=== PATIENT | male | born 1950 | race Caucasian/White ===

== ENCOUNTER → 2024-07-28 06:31 | Outpatient (REF) | payer MEDICARE, BC, SELFPAY | LOC: RAD 06:31 | PROVIDERS: ATTENDING PHYSICIAN Family Medicine | DX: F51.01 Primary insomnia (principal); R53.1 Weakness; R63.4 Abnormal weight loss | CPT/HCPCS: 71260; 74177; Q9967 ==

== ENCOUNTER → 2025-04-12 07:03 | Outpatient (REF) | payer MEDICARE, BC, SELFPAY | LOC: PAVMRI 07:03 | PROVIDERS: ATTENDING PHYSICIAN Family Medicine | DX: R53.83 Other fatigue (principal); R79.89 Other specified abnormal findings of blood chemistry; R20.8 Other disturbances of skin sensation; R42 Dizziness and giddiness; R63.4 Abnormal weight loss | CPT/HCPCS: 70553; A9575 ==

== ENCOUNTER → 2025-04-14 07:02 | Outpatient (REF) | payer MEDICARE, BC, SELFPAY | LOC: HWRCS 07:02 | PROVIDERS: ATTENDING PHYSICIAN Family Medicine | DX: R06.02 Shortness of breath (principal) | CPT/HCPCS: 78452; 93017; A9500; J2785 ==

== ENCOUNTER → 2025-04-15 07:12 | Outpatient (REF) | payer MEDICARE, BC, SELFPAY | LOC: HWRAD 07:12 | PROVIDERS: ATTENDING PHYSICIAN Family Medicine | DX: R53.83 Other fatigue (principal); R63.4 Abnormal weight loss; R59.0 Localized enlarged lymph nodes | CPT/HCPCS: 76882 ==

== ENCOUNTER → 2025-04-15 13:50 | Outpatient (REF) | payer MEDICARE, BC, SELFPAY | LOC: RCS 13:50 | PROVIDERS: ATTENDING PHYSICIAN Family Medicine; REFERRING PHYSICIAN Internal Medicine Cardiovascular Disease | DX: R68.89 Other general symptoms and signs (principal); R53.83 Other fatigue; R42 Dizziness and giddiness; R63.4 Abnormal weight loss; R59.0 Localized enlarged lymph nodes | CPT/HCPCS: 76882; 93306 ==

== ENCOUNTER 2025-04-22 08:51 | Day surgery (SDC) | payer MEDICARE, BC, SELFPAY ==
--- NOTE | 2025-04-23 08:47 | ITS.CL.CARDI ---
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
Cardioversion
Procedure Report:
Date of Procedure: 04/22/25
Procedure: Cardioversion
Indication: Symptomatic atrial fibrillation
Performing Physician: Roman Cates MD
Technique: The patient was brought to the holding area. Signed informed consent was obtained. A time out was called and performed. The patient was anesthetized by the anesthesia service. Anticoagulation status was reviewed and appropriate. R2 pads
were placed anteriorly and posteriorly. A 200 J synchronized biphasic shock restored normal sinus rhythm without significant bradycardia. There were no complications.
Conclusion: Uncomplicated cardioversion from atrial fibrillation to sinus rhythm.
Recommendation: Routine post cardioversion care. 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
== END 2025-04-22 11:19 | disposition home or self-care (01) ==
LOC: CATH 08:51
PROVIDERS: ATTENDING PHYSICIAN Internal Medicine Cardiovascular Disease; FAMILY PHYSICIAN Family Medicine; OTHER PHYSICIAN Internal Medicine Cardiovascular Disease
DX: I48.19 Other persistent atrial fibrillation (principal); Z79.01 Long term (current) use of anticoagulants; I08.0 Rheumatic disorders of both mitral and aortic valves; I08.8 Other rheumatic multiple valve diseases; I10 Essential (primary) hypertension; Z87.891 Personal history of nicotine dependence
CPT/HCPCS: 93312; 93320; 93325; 92960; 93005

== ENCOUNTER → 2025-04-26 09:41 | Outpatient (REF) | payer MEDICARE, BC, SELFPAY ==
[2025-04-26 10:25] VITALS: BP 134/86; BP_SYST 96
== END ==
LOC: RADI 09:41
PROVIDERS: ATTENDING PHYSICIAN Family Medicine
DX: R59.0 Localized enlarged lymph nodes (principal); Z53.8 Procedure and treatment not carried out for other reasons
CPT/HCPCS: 38505

== ENCOUNTER → 2025-04-28 14:12 | Outpatient (REF) | payer MEDICARE, BC, SELFPAY | LOC: DHSLP 14:12 | PROVIDERS: ATTENDING PHYSICIAN Internal Medicine Cardiovascular Disease; FAMILY PHYSICIAN Family Medicine | DX: G47.30 Sleep apnea, unspecified (principal); R06.83 Snoring | CPT/HCPCS: 95800 ==

== ENCOUNTER → 2025-06-01 08:48 | Outpatient (REF) | payer MEDICARE, BC, SELFPAY ==
[2025-06-01 09:54] LABS: Hematocrit 44.1 % (39.0-52.0); Hemoglobin 15.0 g/dL (13.0-18.0); Mean Corp Hgb Conc. 34.0 g/dL (33.0-37.0); Mean Corpuscular Volume 96.9 fL (80.0-94.0); Nucleated Red Blood Cells % 0 % (-); Platelet Count 150 10^3/uL (130-400); Red Cell Dist. Width 13.0 % (11.5-14.5)
[2025-06-01 10:15] LABS: INR 1.55; PT 18.3 Sec (11.4-14.6)
[2025-06-01 10:39] LABS: ALT (SGPT) 24 U/L (0-50); AST (SGOT) 38 U/L (17-59); Albumin 4.7 g/dl (3.5-5.0); Alkaline Phosphatase 63 U/L (38-126); Blood Urea Nitrogen 27 mg/dl (9-20); Calcium 9.5 mg/dl (8.4-10.2); Carbon Dioxide 25 mmol/L (22-30); Chloride 103 mmol/L (98-107); Glucose 97 mg/dl (70-99); Magnesium 2.1 mg/dl (1.6-2.3); Potassium 4.4 mmol/L (3.5-5.1); Sodium 137 mmol/L (135-145); Total Protein 6.9 g/dl (6.3-8.2); eGFR > 60.00
== END ==
LOC: SDSPAT 08:48
PROVIDERS: ATTENDING PHYSICIAN Internal Medicine Cardiovascular Disease; FAMILY PHYSICIAN Family Medicine; OTHER PHYSICIAN Internal Medicine Cardiovascular Disease
DX: I48.91 Unspecified atrial fibrillation (principal); I48.19 Other persistent atrial fibrillation
CPT/HCPCS: 36415; 75572; 80053; 83735; 85025; 85610; 86850; 86900; 86901; 93005; Q9967

== ENCOUNTER 2025-06-17 05:54 | Day surgery (SDC) | payer MEDICARE, BC, SELFPAY ==
[2025-06-01 09:11] VITALS: BMI 26.4
--- NOTE | 2025-06-01 09:25 | HPS.HSE ---
Family Physician
-
Family Physician: James Long
Chief Complaint
-
Persistent atrial fibrillation.
History of Present Illness
The patient is a 75 year old male presenting today for persistent atrial fibrillation. He does report frequent palpitations, occasional chest discomfort, dizziness, lightheadedness, and fatigue associated with this diagnosis. He previously
underwent a VALERIA-guided cardioversion in March 2025 for his arrhythmia. Unfortunately, he had a symptomatic recurrence of his atrial fibrillation only a few days later. His EKG in office on 05/12/2025 demonstrated rate controlled atrial
fibrillation. He is on current pharmacological therapy with Metoprolol Tartrate. Antiarrhythmic drug therapy has been offered previously but was not desired. He reports compliance with Pradaxa for oral anticoagulation. Given his significant
symptoms, he would like to proceed with pulmonary vein isolation for more definitive arrhythmia management. He denies any current complaints today such as chest pain, shortness of breath, nausea, vomiting, diarrhea, cough, sore throat, or fever.
Medical History
Past Medical History
Past Medical History: Reports Other
Additional Past Medical History:
1. Persistent atrial fibrillation, status post VALERIA-guided cardioversion 03/2025; pharmacological therapy with Metoprolol Tartrate and oral anticoagulation with Dabigatran.
2. Coronary artery calcifications per chest CT 07/2024.
3. Mild mitral regurgitation.
4. Pulmonary nodule.
5. Suspected obstructive sleep apnea, work-up ongoing.
6. Right paramedian chest wall sebaceous cyst.
7. Colon polyps.
8. Chronic constipation.
9. Restless leg syndrome.
10. Bradykinesia with Parkinsonian-like appearance.
11. BPH with LUTS.
12. Insomnia.
13. Remote history of tobacco abuse.
Past Surgical History: Reports Other
Additional Past Surgical History:
1. VALERIA-guided cardioversion.
2. Right knee meniscus repair.
3. Bilateral rotator cuff repairs.
4. Appendectomy.
5. Childhood hernia repair.
6. Colonoscopy.
Social History
Tobacco: Former Smoker (He is a former 1 pack per day cigarette smoker who quit tobacco altogether 50 years ago. )
Alcohol: None
Personal:
Living: Other (He lives with his in a 1 story home. )
Family History
Family History: Not pertinent
Allergies / Home Medications
Allergy/Medication List:
Home medications:
1. Ascorbic acid 500 mg p.o. twice a day.
2. Cholecalciferol 50 mcg p.o. daily.
3. Cyanocobalamin 500 mcg p.o. twice a day.
4. Dabigatran 150 mg p.o. twice a day.
5. L-Lysine 1000 mg p.o. daily.
6. Magnesium glycinate 360 mg p.o. at bedtime.
7. Metoprolol Tartrate 50 mg p.o. daily.
8. Potassium Citrate 99 mg p.o. daily.
9. Tamsulosin 0.4 mg p.o. every evening.
Allergies: No known allergies.
Review of Systems
-
A 12 point ROS was completed and negative except as noted: Yes
Physical Exam
Vital Signs
Blood pressure 129/82. Heart rate 86. Respirations 18. Pulse ox 99% on room air.
Height 5 feet, 9.5 inches. Weight 82.1 kg. BMI 26.3.
Physical Exam
General: Well Developed, Well Nourished and No Apparent Distress
HEENT: NormoCephalic, Moist mucous membranes, Atraumatic and PERRLA
Respiratory: Clear
Cardiac: Irregular Rhythm
GI: Soft, Non Tender and Non Distended
Musculoskeletal: No Edema
Skin: Warm and Dry
Neuro: AO x 3 and Other (Bradykinesia. Cogwheel rigidity of upper extremities. )
Laboratory Results
-
DIAGNOSTIC STUDIES as of 06/01/2025: White blood cell count 7.2. Hemoglobin 15.0. Platelet count 150,000. PT 18.3. INR 1.55. Sodium 137. Potassium 4.4. BUN 27. Creatinine 0.9. Glucose 97. Calcium 9.5. Magnesium 2.1. AST 38. ALT 24. Albumin 4.7. Type
and screen A positive.
EKG 06/01/2025: Atrial fibrillation.
Chest CT 06/01/2025: Short segment common vestibule for the left superior and inferior pulmonary veins, fairly commonly seen and considered normal variant. No evidence for left atrial thrombus. Re-demonstration of probable sebaceous cyst within the
right paramedian anterior chest wall measuring up to 2.6 cm, slightly progressed.
Transesophageal echocardiogram 04/22/2025: Normal left ventricular size and function. Ejection fraction is 55-60% by visual assessment. Right ventricular size and systolic function are within normal limits. No evidence of left atrial appendage
thrombus. Moderately dilated left atrium. Mild mitral valve regurgitation.
Nuclear stress test 04/14/2025: Inconclusive ECG for ischemia given the pharmacological study. Probably normal sestamibi perfusion imaging. No evidence of ischemia. Systolic function is mildly reduced. There is mild global hypokinesis. Ejection
fraction 39%.
Impression/Plan
-
IMPRESSION/PLAN:
1. Persistent atrial fibrillation: The patient is in need of pulmonary vein isolation with Dr. Ori Cannon on 06/17/2025. The benefits and risks of the procedure have been explained to the patient. The patient understands these risks and
wishes to proceed. He will not be required to undergo a pre-procedural transesophageal echocardiogram as he has been compliant with his home oral anticoagulation. He is aware to continue his home Dabigatran uninterrupted prior to his procedure. He
will take no medications the morning of his ablation.
[2025-06-17] VITALS (8 sets, daily range): BP systolic 90–143; BP diastolic 56–80; BMI 26.3
--- NOTE | 2025-06-17 08:10 | ITS.CL.ABL ---
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
Ablation
Procedure Report:
ELECTROPHYSIOLOGIC STUDY AND POSSIBLE ABLATION
DATE: June 17, 2025
Primary Care Provider: Dr. James Laguna
Primary Director Of Sports Performance: Dr. Erlin Sequeira
INDICATION:
Symptomatic Atrial Fibrillation.
Persistent
HISTORY: See H and P.
Symptomatic AF, poorly controlled with attempted medical therapy.
seen as a new patient 04/18/2025 and was noted to have persistent atrial fibrillation with rapid ventricular response despite use of metoprolol 50 mg daily. He was therefore arranged for VALERIA/CV. He underwent successful CV with buddhism of SR on
04/22/2025.�
A few days later he called the office noting that he felt as though he was going back into A-fib. His heart rate was stable at 81 bpm, but was feeling dizzy with ambulation. He transitioned to Pradaxa due to cost.
He had sleep study done which was negative for BLAYNE with moderate snoring. He is planned to follow-up with pulmonology next month.
HAS-BLED: 2
Age
Alcohol use
CHADSVASc: 2
HTN
Age
PRESENTING RHYTHM: AF
HISTORY: See H and P.
Symptomatic AF, poorly controlled with attempted medical therapy.
ANTICOAGULATION: Dabigatran 150 mg twice daily
'TIME-OUT': called and confirmed.
SEDATION/ANESTHESIA: provided via the anesthesia department using general anesthesia.
PROCEDURE:
Ultrasound Guidance with real-time visualization of needle insertion and vessel patency performed by oh for femoral venous Vascular Access.
Under real-time US guidance, the needle was advanced with negative pressure into the vein. The needle was seen entering the vessel lumen with a good return of dark red flow, the syringe was removed, non-pulsatile, dark red blood low was noted and
the wire was passed without difficulty, then the needle was removed. US confirmed the wire was in the vein, not going into an artery,
Images were taken and saved for the patient's permanent record. Imaging findings typical femoral venous anatomy. Direct visualization of needle puncture into the femoral vein was observed and recorded.
A decapolar CS catheter was placed within the CS for mapping and pacing.
The intracardiac ultrasound catheter was positioned in the RA for continuous intracardiac ultrasound imaging.
Heparin bolus and infusion to target ACT at 300 -350 seconds was administered. Transseptal puncture was performed. This entailed advancing a sheath with dilator into the superior vena cava and withdrawing both (monitoring intracardiac ultrasound,
fluoroscopy and tip pressure) with the tip oriented toward the atrial septum. The fossa ovalis was engaged (indicated by sudden displacement of the sheath tip as well as tenting of the fossa seen on intracardiac ultrasound).
Transseptal puncture was performed. Left atrial catheter position was confirmed by echocardiographic imaging, pressure monitoring (LA mean pressure 7 mm Hg) and fluoroscopy. The sheath was advanced over the dilator and positioned in the left
atrium.
The Sphere 9 multipolar mapping/ablation Sphere-9 catheter was positioned through the transseptal sheath for high density mapping.
Geometry and voltage mapping was performed using the [employer] mapping system for three-dimensional electroanatomical mapping.
Catheter positioning was guided and confirmed using both I.C.E. and fluoroscopy.
Cardioversion resulted in sinus rhythm.
High density electroanatomical three-dimensional mapping demonstrated four PVs: LSPV, LIPV, RSPV, RIPV.
Ablation strategy included PVI as well as mapping for extra PV contributors to atrial fibrillation which would also be targeted if present.
After accomplishing pulmonary venous isolation, mapping identified additional areas likely to be extra PV contributors to atrial fibrillation. These areas demonstrated patchy low voltage as well as complex fractionated electrograms. These areas can
be sites for the formation of rotors which can drive and maintain atrial fibrillation. These areas are known to be significant contributors to initiation and perpetuation of atrial fibrillation.
Additional energy applications/additional ablation sets targeted extra PV contributors to atrial fibrillation.
Targets for additional PFA ablation included:
LA posterior wall targeted with pulsed electric field energy isolating the posterior wall of the left atrium
After ablation of the posterior wall, additional targets were addressed:
LA inferior floor
These areas were ablated using pulsed electric field energy eliminating the extra PV contributors to atrial fibrillation.
These areas were ablated using pulsed electric field energy eliminating the extra PV contributors to atrial fibrillation.
Post ablation mapping finds entrance and exit block at each of the pulmonary veins, the LA posterior wall and at the additional lines at inferior/floor of the LA rendering the sites no longer able to contribute to atrial fibrillation.
Programmed electrostimulation including burst atrial pacing as well the delivery of decremental extrastimuli down to atrial effective refractory period and no sustained arrhythmias could be induced.
I.C.E. :
Pre-Ablation Post-Ablation
LVEF: 55 % 55 %
WMA: none none
Pericardial effusion: none none
LA Pressure (mmHg) 7 15
COMPLICATIONS:
none
SUMMARY:
- Mapping and ablation to isolate the PVs resulting in electrical isolation of the pulmonary veins
- Additional AF ablation sets X 2 after PVI (LA posterior wall, Inf/floor of the LA posterior wall) resulting in elimination of the targeted extra PV contributors to atrial fibrillation.
- 3-D Electroanatomical Mapping
- Intracardiac Ultrasound
- Ultrasound guidance for vascular access
Post ablation, I discussed today's findings and results with the patient's , Jaimee.
RECOMMENDATIONS:
- Observe in monitored bed.
- Maintain oral anticoagulation.
- Office visit with HELENA Leahy September 20, 2025
- Continue cardiovascular care with Dr. Erlin Sequeira
Copy to:
Primary Care Provider: Dr. James Laguna
Primary Director Of Sports Performance: Dr. Erlin Sequeira
--- NOTE | 2025-06-17 12:47 | W.PN.UPDATE ---
Update Note
Progress Note Update
Pt seen post PFA. Right groin with vascade closure, no ht/bleeding. OOB ambulating, urinating without difficulty. Post EKG NSR 70s, no acute changes. Resume dabigatran tonight. Followup at [facility] as scheduled. Home today if groin site/tele remain
stable.
[2025-06-20 07:42] LABS: ACT-LR - POC > 397 Seconds (116-155)
[2025-06-20 07:42] LABS: ACT-LR - POC > 397 Seconds (116-155)
== END 2025-06-17 12:20 | disposition home or self-care (01) ==
LOC: CATH 05:54
PROVIDERS: ATTENDING PHYSICIAN Internal Medicine Cardiovascular Disease; FAMILY PHYSICIAN Family Medicine; OTHER PHYSICIAN Internal Medicine Cardiovascular Disease
DX: I48.19 Other persistent atrial fibrillation (principal); G25.81 Restless legs syndrome; I10 Essential (primary) hypertension; I25.10 Atherosclerotic heart disease of native coronary artery without angina pectoris; N40.1 Benign prostatic hyperplasia with lower urinary tract symptoms; Z87.891 Personal history of nicotine dependence; Z79.01 Long term (current) use of anticoagulants; Z79.899 Other long term (current) drug therapy; Z86.0100 Personal history of colon polyps, unspecified; Z90.49 Acquired absence of other specified parts of digestive tract; Z98.890 Other specified postprocedural states; R00.2 Palpitations; R07.89 Other chest pain; R53.83 Other fatigue; R25.8 Other abnormal involuntary movements; G47.00 Insomnia, unspecified; K59.09 Other constipation; R91.1 Solitary pulmonary nodule; L72.3 Sebaceous cyst
CPT/HCPCS: C1894; C1733; C1769; C1766; C1730; C1892; 85347; 86900; 86901; 93005; 93656; 93657; C1760